=== PATIENT | female | born 1965 | race Caucasian/White ===

== ENCOUNTER → 2023-07-22 10:06 | Outpatient (REF) | payer BC, SELFPAY | LOC: WDC 10:06 | PROVIDERS: ATTENDING PHYSICIAN Nurse Practitioner Family | DX: N63.22 Unspecified lump in the left breast, upper inner quadrant (principal) | CPT/HCPCS: 76642; 77062; 77066 ==

== ENCOUNTER 2023-09-29 17:46 | Inpatient (IN) | payer BC, SELFPAY ==
[2023-09-29] VITALS (16 sets, daily range): BP systolic 75–139; BP diastolic 52–87; BMI 33.8
[2023-09-29 09:00] LABS: % Basophils 0.2 % (0-2); % Eosinophils 1.2 % (0-6); % Immature Granulocytes 0.7 % (0-0.5); % Lymphocytes 3.8 % (20.5-51.1); % Monocytes 6.7 % (1.7-9.3); % Neutrophils 87.4 % (42.2-75.2); Absolute Eosinophils 0.2 10^3/uL (0-0.7); Absolute Immature Granulocytes 0.1 10^3/uL (0-0.05); Absolute Lymphocytes 0.5 10^3/uL (1.2-3.4); Absolute Monocytes 0.8 10^3/uL (0.1-0.6); Absolute Neutrophils 10.9 10^3/uL (1.4-6.5); Hematocrit 37.8 % (37.0-47.0); Mean Corp Hgb Conc. 34.4 g/dL (33.0-37.0); Mean Corpuscular Hgb 25.9 pg (27.0-31.0); Mean Corpuscular Volume 75.4 fL (81.0-99.0); Mean Platelet Volume 8.8 fL (7.4-10.4); Nucleated Red Blood Cells % 0 %; Platelet Count 236 10^3/uL (130-400); Red Blood Cell Count 5.01 10^6/uL (4.20-5.40); Red Cell Dist. Width 14.7 % (11.5-14.5); White Blood Cell Count 12.5 10^3/uL (4.8-10.8)
[2023-09-29 09:04] LABS: ALT (SGPT) 35 U/L (0-35); AST (SGOT) 41 U/L (14-36); Albumin 3.7 g/dl (3.5-5.0); Alkaline Phosphatase 106 U/L (38-126); Blood Urea Nitrogen 31 mg/dl (7-17); Carbon Dioxide 29 mmol/L (22-30); Chloride 98 mmol/L (98-107); Estimated Creatinine Clearance 86 ml/min; Glucose 113 mg/dl (70-99); Sodium 135 mmol/L (135-145); Total Bilirubin 0.9 mg/dl (0.2-1.3); Total Protein 6.4 g/dl (6.3-8.2); eGFR > 60.00
--- NOTE | 2023-09-29 09:09 | ED.GENMED ---
History of Present Illness
General
Chief Complaint: Fever
Time Seen by Provider: 09/29/23 08:41
History of Present Illness
History of Present Illness:
58-year-old female with history of hypertension and hyperlipidemia presents to the emergency department for evaluation of waxing and waning fever and migratory polyarthralgias ongoing for the past 3 weeks. She initially had a sore throat and fever
and was seen by her primary care physician, reportedly had a negative strep test but was started on amoxicillin and prednisone. As the symptoms worsen she developed a rash on the skin after starting amoxicillin and thus was switched to doxycycline
shortly thereafter. She completed a 7-day course of doxycycline and yesterday finished a second course of prednisone without any relief of symptoms. She also reports generalized nausea, occasional vomiting, and generalized abdominal pain.
states that during the times that she is noting significant joint pain the joints are visibly swollen at that time as well. Was reportedly tested for Lyme primary care physician at the onset of symptoms and this was negative. She did being bitten
by any ticks and does not have any outdoor exposure that would put her at risk for this. No recent international travels.
Past History
Past History
ED Past Medical History: None
ED Past Surgical History: None
Social History
Tobacco: Non-smoker
Alcohol: None
Drug: None
Personal:
Living: with family
Employment: Employed
Family History
Family History: Other (No history of colitis)
Review of Systems
Review of Systems
Allergies reviewed?: Yes
All Other Systems: ROS reviewed and negative except as documented in HPI and ROS
Phy Exam
Physical Exam
Physical Exam:
GEN: Well appearing, NAD, WDWN
Eyes: PERRLA, EOMs intact, no scleral icterus
HENT: NCAT, oral mucosa moist, no JVD, no cervical adenopathy.
Lungs: CTAB, no wheezes, rales, rhonchi, normal chest wall excursion
Cardiac: RRR, no M/R/G, no peripheral edema. Radial pulses 2+ bilat
Abdomen: S, NT, ND, NABS, no masses or hepatosplenomegaly
Neuro: AO x 3
MSK: No gross deformity or ecchymosis. No obvious joint effusions
Skin: No rashes, petechiae. Normal color, no pallor or jaundice.
Psych: Calm, cooperative, proper hygiene
Course
Orders/Labs/Results
Orders:
Orders
09/29/23 08:44
CMP [Comprehensive Metabolic Panel] Urgent
Complete Blood Count/With Diff Urgent
Lyme Progressive Urgent
Comment: Add on per Ian Whiting
09/29/23 09:07
Lactic Acid Urgent
Urinalysis Reflex To Culture Urgent
Date Specimen was Collected: 09/29/23
Time Specimen was Collected: 09:04
Urine Microscopic Reflex Cult Urgent
Blood Culture Stat
NAVEEN Source: Blood/Venous
Specimen Description:
Urine Culture Urgent
NAVEEN Source: U
Specimen Description:
Date Specimen was Collected: 09/29/23
Time Specimen was Collected: 09:04
0.9% Sodium Chloride 1000 ml [Nss] 1,000 ml IV BOLUS
Acetaminophen [Tylenol] 1,000 mg PO NOW STA
Ondansetron Injectable [Zofran] 4 mg IV NOW STA
CR Chest - 2 Views Urgent
Comment:
Reason For Exam: fever
09/29/23 09:12
Electrocardiogram (*1) Urgent
Reason for Study: QTc Monitoring
EKG- Treatment ONCE
09/29/23 09:58
Blood Culture Urgent
NAVEEN Source: Blood/Venous
Specimen Description:
09/29/23 10:33
Add On- LAB Urgent
Tests Added?: Lyme
09/29/23 11:04
CT Abd/pel W Iv And Oral Contr Urgent
Comment:
Reason For Exam: fever x 3 weeks
Iohexol [Omnipaque] See Protocol PO NOW STA
09/29/23 11:56
0.9% Sodium Chloride 1000 ml [Nss] 1,000 ml IV BOLUS
09/29/23 13:22
0.9% Sodium Chloride 1000 ml [Nss] 800 ml IV BOLUS
Cefepime HCl [Maxipime] 2,000 mg IV NOW STA
09/29/23 14:46
Ketorolac [Toradol] 15 mg IV NOW STA
Ondansetron Injectable [Zofran] 4 mg IV NOW STA
09/29/23 15:30
Blood Culture Urgent
NAVEEN Source: Blood/Venous
Specimen Description:
Abnormal Lab Results
09/29/23 09/29/23
08:44 09:07
WBC 12.5 H 10^3/uL
(4.8-10.8)
MCV 75.4 L fL
(81.0-99.0)
MCH 25.9 L pg
(27.0-31.0)
RDW 14.7 H %
(11.5-14.5)
Abs Immat Gran (auto) 0.1 H 10^3/uL
(0-0.05)
Absolute Neuts (auto) 10.9 H 10^3/uL
(1.4-6.5)
Absolute Lymphs (auto) 0.5 L 10^3/uL
(1.2-3.4)
Absolute Monos (auto) 0.8 H 10^3/uL
(0.1-0.6)
Immature Gran % 0.7 H %
(0-0.5)
Neutrophils % 87.4 H %
(42.2-75.2)
Lymphocytes % 3.8 L %
(20.5-51.1)
BUN 31 H mg/dl
(7-17)
Glucose 113 H mg/dl
(70-99)
AST 41 H U/L
(14-36)
Urine Ketones Trace A
(Negative)
Ur Occult Blood Reflex 4+ A
(Negative)
Urine Bilirubin 1+ A
(Negative)
Leukocyte Esterase Rfl 1+ A
(Negative)
Urine RBC 3-6 A /HPF
(0-2)
Urine Bacteria (Reflex) Moderate A
(Negative)
09/29/23 08:44
09/29/23 08:44
Vital Signs
Initial and Last Documented VS:
Initial Vital Signs
Temp Pulse Resp Pulse Ox
103.2 F H 94 16 95
09/29/23 08:24 09/29/23 08:24 09/29/23 08:24 09/29/23 08:24
Last Documented Vital Signs
Temp Pulse Resp BP Pulse Ox
103.1 F H 109 27 118/78 95
09/29/23 14:49 09/29/23 14:15 09/29/23 14:15 09/29/23 14:00 09/29/23 08:24
MDM/Problems Addressed
MDM/Problems Addressed:
Etiology to the patient's fever remains elusive. Broad workup is unrevealing. She was markedly hypotensive for a period of time requiring large fluid bolus of approx 2800cc. She does have bacteruria but sample has squamous cells. Ultimately she does
not look clinically well enough to be d/c home. Given scant leukocytosis will cover with one dose of broad spectrum IV abx and admit for further evaluation and management
*Critical Care Note
Total Time (30-74mins, 75-104mins- exclusive of procedures): Not Applicable
Update Note
Update Note:
Pt abruptly noted to be hypotensive in the 70s systolic. 2nd L of NS ordered. Will expedite CT if she remains hypotensive
ED Attending Note
-
Portions of this chart may have been created with voice recognition software.� Occasional wrong word or��sound alike� substitutions may have occurred due to the inherent limitations of voice recognition software.
Discharge Plan
Departure
Patient Disposition: Admit
Date of Disposition: 09/29/23
Time of Disposition: 14:57
Admit to: Med/Surg
Presentation/result/management discussed w/ accepting MD/DO: Hospitalist
Discharge Problem:
Fever of unknown origin (FUO)
Prescriptions:
No Action
atorvastatin 40 MG tablet
40 mg PO HS
losartan [Cozaar] 100 MG tablet
100 mg PO DAILY
prednisone 10 mg tablet
40 mg PO UD
Rx Instructions:
starting 09/18/23 take 40mg daily for 3 days then 30mg daily for 3 days then 20mg daily for 3 days then 10mg daily for 3 days
hydrochlorothiazide 25 mg Tablet
25 mg PO DAILY
acetaminophen [Tylenol] 325 mg Tablet
650 mg PO Q4HPRN PRN (Reason: mild pain)
sertraline 100 mg Tablet
100 mg PO HS
montelukast [Singulair] 10 mg Tablet
10 mg PO HS
Referrals:
Isa Varner PA [Family Provider] -
Interventions
Interventions:
*Risk Screen - Suicide Last Done: 09/29/23 08:34
*General Assessment Last Done: 09/29/23 08:34
*Neglect/Abuse Screening Last Done: 09/29/23 08:34
ED- Fall Risk Assessment Last Done: 09/29/23 08:34
*ED COVID-19 Vaccine History Last Done: 09/29/23 08:24
ED- Neurological Assessment Last Done: 09/29/23 08:34
ED-Skin Assessment Last Done: 09/29/23 08:34
Discharge Date and Time
Print Language: SLOVENIAN
[2023-09-29] MEDS: NSS 1000 IV ×3 (09:14→19:47)
[2023-09-29] MEDS: TYLENOL 1000 MG PO (09:14)
[2023-09-29] MEDS: ZOFRAN 4 MG IV ×3 (09:15→20:19)
[2023-09-29 09:30] LABS: Lactic Acid 1.2 mmol/L (0.7-2.0)
[2023-09-29] MEDS: OMNIPAQUE 50 ML PO (11:14)
[2023-09-29 11:30] LABS: Urine Albumin Trace (Neg - Trace); Urine Bilirubin 1+ (Negative); Urine Character Clear (Clear); Urine Color Yellow; Urine Glucose Negative (Negative); Urine Ketone Trace (Negative); Urine Leukocyte 1+ (Negative); Urine Nitrite Negative (Negative); Urine Occult Blood 4+ (Negative); Urine Urobilinogen Negative (Neg - 1+)
[2023-09-29 11:49] LABS: Urine Urothelial Cell 0-2 /LPF (FEW)
[2023-09-29 11:50] LABS: Urine Bacteria Moderate (Negative)
[2023-09-29] MEDS: MAXIPIME 2000 MG IV (13:42)
[2023-09-29] MEDS: NSS 800 IV (13:42)
[2023-09-29] MEDS: TORADOL 15 MG IV (14:53)
--- NOTE | 2023-09-29 16:41 | HPS.HSE ---
Family Physician
-
Family Physician: Isa Varner
Chief Complaint
-
FUO, hypotension
History of Present Illness
The patient is a 58 yo woman with PMH significant for HTN and HLD, who presents to ED due to intermittent fever and migratory polyarthralgias for 3 weeks. She was seen by PCP for sore through and fever, had negative strep and was started on
Amoxicillin (2 days) and prednisone (20 days total). Symptoms worsened and she developed rash, so abx was changed to Doxycycline (completed total of 10 days of Doxy), and yesterday finished 20-day course of prednisone without any relief. She's also
had associated nausea, occasional vomiting, generalized abdominal pain, migrating joint pain, migrating joint swelling, and rashes that are intermittent (rash started before starting amoxicillin), one rash appeared discoid though is no longer
present, some rashes in lines/raised, some macular/papular. She was tested for Lyme by PCP and was told this was negative. No known tick bites, no recent travel. She was hypotensive in ED, and it improved with large fluid bolus 2800 mL.
ED diagnostics: CT a/p, CXR, EKG, LA level, lyme titer, UA, Blood cx, urine cx
ED txt:
IVF boluses, Tylenol PO, Zofran IV, IV Cefepime 2 g
Medical History
Past Medical History
Past Medical History: Reports HTN and Hypercholesterolemia
Past Surgical History: Reports None
Social History
Tobacco: Non-smoker
Alcohol: Occasional
Drug: None
Personal:
Living: With Family
Employment: Employed ([employer])
Family History
Family History: Other (sister w lupus )
Allergies / Home Medications
Allergies reflects when Allergies were last updated in [facility].
Home Medications with original date entered in [facility]
Allergy/Medication List:
Allergies
Allergy/AdvReac Type Severity Reaction Status Date / Time
NKA - No Known Allergies Allergy Unknown Uncoded 09/29/23 08:26
Home Medications
atorvastatin 40 mg tablet 40 mg PO HS 05/23/20
losartan 100 mg tablet (Cozaar) 100 mg PO DAILY 05/23/20
acetaminophen 325 mg tablet (Tylenol) 650 mg PO Q4HPRN PRN mild pain 09/29/23
hydrochlorothiazide 25 mg tablet 25 mg PO DAILY 09/29/23
montelukast 10 mg tablet (Singulair) 10 mg PO HS 09/29/23
prednisone 10 mg tablet 40 mg PO UD 09/29/23
sertraline 100 mg tablet 100 mg PO HS 09/29/23
Review of Systems
-
A 12 point ROS was completed and negative except as noted: Yes
Physical Exam
Vital Signs
Vital Signs
Temp Pulse Resp BP Pulse Ox
103.1 F H 103 17 100/52 95
09/29/23 14:49 09/29/23 16:00 09/29/23 14:48 09/29/23 16:00 09/29/23 08:24
Physical Exam
General: Well Developed, Well Nourished, Conversant and Other (feels hot)
HEENT: NormoCephalic, Anicteric, Moist mucous membranes and Other (tonsillolith posterior/ no tonsillar exudate)
Respiratory: Clear
Cardiac: S1/S2 and Tachycardia
GI: Soft, Non Tender, Non Distended and Normal Bowel Sounds
Musculoskeletal: No Clubbing, No Cyanosis and No Edema
Skin: Warm, Dry and Other (no active rashes)
Neuro: AO x 3 and Nonfocal/grossly intact
Hematologic/Lymphatic: No Lymphadenopathy
Psych: Calm
Laboratory Results
-
09/29/23 08:44
09/29/23 08:44
Laboratory Results
Lactic Acid 1.2 mmol/L (0.7-2.0) 09/29/23 09:07
Total Bilirubin 0.9 mg/dl (0.2-1.3) 09/29/23 08:44
AST 41 U/L (14-36) H 09/29/23 08:44
ALT 35 U/L (0-35) 09/29/23 08:44
Alkaline Phosphatase 106 U/L (38-126) 09/29/23 08:44
Data Reviewed
-
Diagnostic Radiology: Report Reviewed by me (CXR Mild opacity in the left lung base favored to represent atelectasis. The cardiomediastinal silhouette is normal. Chronic mild degenerative changes of the spine.)
CT Scan: Report Reviewed by me (CT a/p w IV and oral contrast- 2.5 mm left renal calculus, otherwise normal)
Impression/Plan
-
IMPRESSION:The patient is a 58 yo woman with PMH significant for HTN and HLD, who presents to ED due to intermittent fever and migratory polyarthralgias for 3 weeks. She was seen by PCP for sore through and fever, had negative strep and was started
on Amoxicillin (2 days) and prednisone (20 days total). Symptoms worsened and she developed rash, so abx was changed to Doxycycline (completed total of 10 days of Doxy), and yesterday finished 20-day course of prednisone without any relief. She's
also had associated nausea, occasional vomiting, generalized abdominal pain, migrating joint pain, migrating joint swelling, and rashes that are intermittent (rash started before starting amoxicillin), one rash appeared discoid though is no longer
present, some rashes in lines/raised, some macular/papular. She was tested for Lyme by PCP and was told this was negative. No known tick bites, no recent travel. She was hypotensive in ED, and it improved with large fluid bolus 2800 mL.
ED diagnostics: CT a/p, CXR, EKG, LA level, lyme titer, UA, Blood cx, urine cx
ED txt:
IVF boluses, Tylenol PO, Zofran IV, IV Cefepime 2 g
# FUO , fever 103, associated with intermittent rash (one discoid, several dermatographic, not present currently), migratory polyarthropathy with migrating joint swelling, abdominal discomfort, presents with hypotension, leukocytosis, tachycardia,
concerning for multifactorial etiology, autoimmune vs infectious etiology vs inflammatory process
- due to persistent hypotension, received 2800 mL bolus in ED, BP 100/70 currently p bolus
-Tele admit
-Cont IVF, hold off on stress dose of steroids for now as BP is stable currently p fluids; unless persistent intractable hypotension then consider stress-dose steroids
-ID consultation appreciated with recs for labs: ferritin, ESR/CRP, NAVID/RF, CCP, SPEP, T-spot, am cortisol level, repeat 3rd set of blood cultures, then start IV Doxy & IV Rocephin
-blood cx (2nd and 3rd set in ED)
-UA pending
-CT a/p reviewed- unlikely that small non-obstructing stone is etiology of fevers/symptoms, but may be etiology of blood in urine
#Mild transaminitis with AST 41
-repeat CMP in am
#HTN
-hold antihypertensives while hypotensive
#HLD
-statin
# Cont Sertraline
DVT proph-Lovenox
Full Code
--- NOTE | 2023-09-29 18:55 | PTCARENOTE ---
Received pt from ER via stretcher, accompanied by ER staff. Pt AAO x3, WRIGHT;ambulatory to bed with minimal assistance. Placed on telemetry:sinus tachy. On room air- pulseox 95%, no SOB noted. Temp 102.9 PO. Pt oriented to 4east, currently
resting in bed. Awaiting lab to draw blood cx. Will continue to monitor.
[2023-09-29 19:12] LABS: Erythrocyte Sed Rate 20 mm/hour (0-20)
[2023-09-29] MEDS: PROTONIX IV 40 MG IV (19:48)
[2023-09-29] MEDS: LOVENOX 40 MG SC (19:48)
[2023-09-29] MEDS: NSS (PRESERVATIVE FREE) 10 ML IV (19:49)
[2023-09-29] MEDS: ROCEPHIN 1000 MG IV (19:52)
[2023-09-29] MEDS: STERILE WATER FOR INJECTION 10 ML IV (19:53)
[2023-09-29] MEDS: VIBRAMYCIN 260 MG IV (20:10)
[2023-09-29] MEDS: TYLENOL 650 MG PO (20:15)
[2023-09-29] MEDS: LIPITOR 40 MG PO (21:26)
[2023-09-29] MEDS: ZOLOFT 100 MG PO (21:26)
[2023-09-29] MEDS: SINGULAIR 10 MG PO (21:27)
[2023-09-29] MEDS: MOTRIN PO (23:55)
[2023-09-30] MEDS: TYLENOL 650 MG PO ×2 (01:57→08:37)
[2023-09-30 03:41] VITALS: BP 131/82
[2023-09-30 06:00] VITALS: BMI 34.0
[2023-09-30 07:10] VITALS: BP 127/83
[2023-09-30 07:26] LABS: % Basophils 0.2 % (0-2); % Lymphocytes 2.9 % (20.5-51.1); % Monocytes 4.3 % (1.7-9.3); % Neutrophils 89.6 % (42.2-75.2); Absolute Eosinophils 0.2 10^3/uL (0-0.7); Absolute Immature Granulocytes 0.1 10^3/uL (0-0.05); Absolute Lymphocytes 0.3 10^3/uL (1.2-3.4); Absolute Monocytes 0.4 10^3/uL (0.1-0.6); Absolute Neutrophils 9.2 10^3/uL (1.4-6.5); Hematocrit 34.1 % (37.0-47.0); Hemoglobin 11.5 g/dL (12.0-16.0); Mean Corp Hgb Conc. 33.7 g/dL (33.0-37.0); Mean Corpuscular Hgb 25.8 pg (27.0-31.0); Mean Corpuscular Volume 76.5 fL (81.0-99.0); Nucleated Red Blood Cells % 0 %; Platelet Count 134 10^3/uL (130-400); Red Blood Cell Count 4.46 10^6/uL (4.20-5.40); White Blood Cell Count 10.2 10^3/uL (4.8-10.8)
[2023-09-30 07:34] LABS: INR 1.36; PT 16.6 Sec (11.4-14.6)
[2023-09-30 07:35] LABS: APTT 55.2 Sec (23.4-35.0)
[2023-09-30 08:03] LABS: ALT (SGPT) 53 U/L (0-35); AST (SGOT) 69 U/L (14-36); Albumin 2.8 g/dl (3.5-5.0); Alkaline Phosphatase 135 U/L (38-126); Blood Urea Nitrogen 15 mg/dl (7-17); Calcium 7.8 mg/dl (8.4-10.2); Carbon Dioxide 27 mmol/L (22-30); Chloride 101 mmol/L (98-107); Estimated Creatinine Clearance 99 ml/min; Glucose 89 mg/dl (70-99); Sodium 134 mmol/L (135-145); Total Bilirubin 1.1 mg/dl (0.2-1.3); Total Protein 5.2 g/dl (6.3-8.2); eGFR > 60.00
[2023-09-30 08:36] LABS: Cortisol, Random 24.1 ug/dl
[2023-09-30] MEDS: PROTONIX IV 40 MG IV (08:37)
[2023-09-30] MEDS: NSS (PRESERVATIVE FREE) 10 ML IV (08:37)
[2023-09-30] MEDS: VIBRAMYCIN 260 MG IV ×2 (08:55→19:54)
[2023-09-30 11:48] VITALS: BP 115/71
[2023-09-30] MEDS: ZOFRAN 4 MG IV ×2 (14:59→22:48)
[2023-09-30 15:09] LABS: Lyme Antibody Screen, EIA Negative (Negative)
[2023-09-30 15:09] LABS: Rheumatoid Agglutinin Less Than 10 IU (<10 IU)
--- NOTE | 2023-09-30 15:19 | W.PN.HOSP.TC ---
Today's Communication/Plan
-
check hepb/c/hiv in am
f/u blood culture report
monitor T curve
Assessment / Plan
Assessment / Plan
1. Fever of unclear origin
Migratory polyarthralgia
-Patient with ongoing high-grade fever for last few days
-Patient finished empiric course of amoxicillin/steroid (20 days)/doxycycline (10 days)
-Denies of any recent travel. No previous history of similar issues
-Chest x-ray/CT abdomen pelvis/UA unrevealing for any acute etiology
-Blood cultures have been collected and report pending
-Test sent for TB T spot/NAVID/rheumatoid factor/anti-CCP
-Significantly elevated acute phase reactant, CRP of 165. Ferritin 2980. ESR normal? 20
-Does have family history of SLE, NAVID serum are elevated will need to check for dsDNA/anti-Boyle antibody/complement
-Patient also reported skin rash which is resolved this point (likely from steroid course?), vasculitis remains in differential
-ID has been involved, checking for hepatitis B/C/HIV. Other viral panels/infectious etiology testing per ID.
-Currently on empiric Rocephin and doxycycline.
2. Hyperlipidemia
-Maintain on Lipitor
3. Depression/anxiety
-continue on sertraline
4. Essential HTN
-Blood pressure controlled without losartan/hydrochlorothiazide, continue monitor
-will resume once appropriate
5. Elevated ferritin level
Mild transaminitis
-LFT minimally elevated with ferritin of 2980
-check for Transferrin saturation level
6. Microcytic anemia
-MCV 76.5 which is chronically low at somewhat same level
-Ferritin elevated. check for Iron saturation
DVT PPX -scd
Full code
Total time spent : 52 mins
I personally saw and examined the patient.
I have reviewed all diagnostic interpretations and treatment plans as written.
Time includes patient management by me, time spent at the patients bedside, time to review lab and imaging results, discussing patient care, documentation in the medical record, and time spent with the family or caregiver and discussing care plan
with RN/Consultants.
Anticipated Discharge: > 48 hours
Subjective/Interval History
-
Date of Service: September 30, 2023
Continues to have high-grade fever overnight
continues to have diffuse joint aches
no rash
Objective Data
-
Labs:
Laboratory Results
09/30/23
07:10
WBC 10.2
Hgb 11.5 L
Hct 34.1 L
Plt Count 134 D
PT 16.6 H
INR 1.36
APTT 55.2 H
Sodium 134 L
Potassium 4.0
Chloride 101
Carbon Dioxide 27
BUN 15
Creatinine 0.7
Glucose 89
Calcium 7.8 L
Total Bilirubin 1.1
AST 69 H
ALT 53 H
Alkaline Phosphatase 135 H
Vital Signs:
Vital Signs
Temp Pulse Resp BP Pulse Ox
101.1 F H 103 20 115/71 99
09/30/23 11:48 09/30/23 11:48 09/30/23 11:48 09/30/23 11:48 09/30/23 13:53
Review of Systems
-
Constitutional: Reports Fever and Fatigue
Respiratory: Reports No Symptoms
Cardiac: Reports No Symptoms
Abdomen/GI: Reports No Symptoms
Musculoskeletal: Reports Joint Pain; Denies Joint Swelling
Physical Exam
-
General: No Apparent Distress and Comfortable
HEENT: Negative Oxygen
Respiratory: Clear to Auscultation
Cardiac: Regular Rhythm and S1/S2; Negative Murmur or Rub
GI: Soft, Nontender and Nondistended
Musculoskeletal: No Edema
Neuro: Awake, Alert, Oriented, No Motor Deficits and Nonfocal/Grossly Intact
Psych: Calm
--- NOTE | 2023-09-30 15:33 | CON.ID ---
Consultation
-
Date/Time Consultation Requested: September 29, 2023 1833
Date/Time Consultation Performed: September 30, 2023 1530
Requesting Provider: Dr. Raphael Jo
Performing Provider: Dr. Kim Murrieta
Reason for Consultation: FUO, hypotensive, migratory polymyalgia, rash
Chief Complaint / Past History
Chief Complaint
High fevers
History of Present Illness
History obtained from the patient. She is a 58-year-old female with hypertension who started feeling unwell on
September 06, 2023 with a queasy feeling and bodyaches. On September 07 she noted a rash on her chest.
September 06: she developed sore throat
September 07: sore throat became severe associated with low-grade fever and joint pains. Rash on her body.
September 09: she saw her PCP throat swab was negative for rapid strep. She was started on amoxicillin and prednisone taper over 12 days.
September 10: she felt better
September 11: she started feeling worse again with throat pain, worsening rash, and migratory joint pains. COVID test negative. Her PCP discontinued amoxicillin and treated her with empiric oseltamivir.
She continues to have intermittent low-grade fevers, migratory joint pains knee on the knees, ankle, wrist, shoulder. Also with rash on her leg, abdomen, knee. Rash was not pruritic. Slight scratch resulted then dermatographia which would then
turn purple the next day then resolved. Some of the rash are maculopapular. Some looked like erythema multiforme. Of note she has photos of the rash on her cell phone.
September 16: She saw her primary care physician on who ordered blood test and started her empirically on doxycycline for possible Lyme and another 12-day course of prednisone taper. Rapid strep negative. Lyme screen was negative. Parvovirus IgG and
IgM negative. White count of 17.5, platelets over 500. Sed rate 37. CRP 121. On the second round of prednisone, the rash eventually resolved, migratory polyarthralgias resolved, fevers resolved. She finished a prednisone taper on September 26.
September 27 she started having high-grade fevers above 101 with chills, dry cough, frontal KELLER, some mild sinus congestion, nausea and vomiting, GI upset. Home COVID test negative.
Came to ED September 28. Persistently febrile up to 104. CT a/p unremarkable. CXR atelectasis. Bcx neg to date. Currently on ceftriaxone and doxycycline. No ill contacts. She lives with her . 23-year-old son and 19-year-old daughter. She
bakes cookies for living. Last travel was to [place] in May 2023. Last time she was outdoor in the gardens was August 30. No known tick bites. No pets. No known TB exposure. Positive sweats with the fever. Currently no arthralgias. No rash.
No diarrhea. No dysuria or flank pain.
Past History
Additional Past Medical History:
Hypertension
Dyslipidemia
asthma
Depression/anxiety
Stress-induced hives on LUE
Allergy History:
No Known Allergies Allergy (Unverified 09/29/23 18:35)
Medications Reviewed: Yes
Current Antibiotics:
Ceftriaxone
IV doxycycline
Social History
Tobacco: Non-Smoker
Alcohol: None
Drug: None
Personal:
Living: With Family
Employment: Employed ([employer])
Family History
Family History: Other (Sister with lupus)
Review of Systems
Review of Systems
HEENT: Negative Stiff Neck or Pharyngitis
Cardiovascular: Negative Chest Pain
Respiratory: Cough; Negative Dyspnea or Sputum Production
Gasteroenterology: Nausea and Vomiting
Genital / Urological: Negative Dysuria or Flank Pain
Endocrine: Weakness
Musculoskeletal: Negative Joint Pain or Joint Swelling
Skin / Hair / Nails: Negative Rash
Neurological: Negative Headache or Dizziness
All systems: All other systems were reviewed and were negative
Vital Signs
Temp Pulse Resp BP Pulse Ox
101.1 F H 103 20 115/71 99
09/30/23 11:48 06/24/24 11:48 09/30/23 11:48 09/30/23 11:48 09/30/23 13:53
Selected Entries
09/29/23
20:15
Temp 104.7 F H
Physical Exam
Physical Exam
Constitutional: No Acute Distress and Comfortable
Head: Other (No frontal or maxillary sinus tenderness)
Eyes: No Conjunctival Hemorrhage and Sclera Anicteric
Oral: No Thrush
Cardiovascular: Regular Rate and S1/S2
Pulmonary: Clear
Gastrointestinal: Soft, Non Tender, Non Distended and Normal Bowel Sounds
Genito-Urinary: Negative Butler or CVA Tenderness
Extremities: Negative Edema
Musculoskeletal: Negative Joint Swelling, Joint Effusion or Spinal Tenderness
Skin: Negative Rash
Neurological: AO x 3
Lab / Diagnostic Study Results
09/30/23 07:10
09/30/23 07:10
Abs Immat Gran (auto) 0.1 10^3/uL (0-0.05) H 09/30/23 07:10
Absolute Neuts (auto) 9.2 10^3/uL (1.4-6.5) H 09/30/23 07:10
Absolute Lymphs (auto) 0.3 10^3/uL (1.2-3.4) L 09/30/23 07:10
Absolute Monos (auto) 0.4 10^3/uL (0.1-0.6) 09/30/23 07:10
Absolute Basos (auto) 0.0 10^3/uL (0-0.2) 09/30/23 07:10
Immature Gran % 1.0 % (0-0.5) H 09/30/23 07:10
Neutrophils % 89.6 % (42.2-75.2) H 09/30/23 07:10
Lymphocytes % 2.9 % (20.5-51.1) L 09/30/23 07:10
Monocytes % 4.3 % (1.7-9.3) 09/30/23 07:10
Eosinophils % 2.0 % (0-6) 09/30/23 07:10
Basophils % 0.2 % (0-2) 09/30/23 07:10
ESR 20 mm/hour (0-20) 09/29/23 18:58
PT 16.6 Sec (11.4-14.6) H 09/30/23 07:10
INR 1.36 09/30/23 07:10
Lactic Acid 1.2 mmol/L (0.7-2.0) 09/29/23 09:07
C-Reactive Protein 165.70 mg/L (0.0-10.00) H 09/29/23 18:58
Ur Squamous Epith Cells 11-15 /LPF (Few) 09/29/23 09:07
Microbiology Results
Micro:
09/29/23 09:58 Blood Culture - Preliminary
Blood/Venous No Growth in 24 hours- Final report to follow
09/29/23 09:07 Urine Culture - Final
Urine
09/29/23 09:07 Blood Culture - Preliminary
Blood/Venous No Growth in 24 hours- Final report to follow
09/29/23 19:37 Blood Culture - Pending
Blood/Venous
09/29/23 18:58 Blood Culture - Pending
Blood/Venous
09/29/23 CXR: Mild left basilar atelectasis, less likely pneumonia in the appropriate clinical setting.
09/29/23 CT a/p with iv and oral contrast: 2.5 mm left renal calculus. Otherwise normal
Assessment / Plan
# Persistent high fever
# Leukocytosis x 1 resolved
# 3 week h/o intermittent sore throat, low grade fever, migratory polyarthralgia/arthritis, and rash -> ALL RESOLVED ON SECOND ROUND OF PREDNISONE TAPER X 12 DAYS.
-Outpatient Lyme neg, Parvovirus IgG/IgM neg, rapid strep x 2 negative, COVID19 neg.
- Bcx x 2 neg to date.
-CT a/p unremarkable
- UA no significant pyuria, no urinary sxs
- Suspect systemic rheumatological condition. She responded to steroid. When off steroid, fever recurred.
Ferritin and CRP significantly elevated.
Rheumatoid factor neg.
Work-up in progress. Added anti-DS DNA Ab.
No objection to steroid if blood cx remains neg.
-Postinfectious arthritis possible, ie ?rheumatic fever
Check anti-DNase and Anti-streptolysin
- Agree with HIV screen
- Check for syphilis.
[2023-09-30 15:44] VITALS: BP 115/71
[2023-09-30] MEDS: MOTRIN 400 MG PO ×2 (16:20→23:44)
[2023-09-30] MEDS: LOVENOX 40 MG SC (17:13)
--- NOTE | 2023-09-30 17:47 | CM ---
Attempted to speak with Scot, however she asked that I return another day, as she was not up to talking.
CM to follow up in AM to complete IA.
[2023-09-30] MEDS: STERILE WATER FOR INJECTION 10 ML IV (19:52)
[2023-09-30] MEDS: ROCEPHIN 1000 MG IV (19:53)
[2023-09-30 20:25] VITALS: BP 106/63
[2023-09-30] MEDS: ZOLOFT PO (21:14)
[2023-09-30] MEDS: SINGULAIR PO (21:14)
[2023-09-30] MEDS: LIPITOR PO (21:14)
[2023-09-30] MEDS: OFIRMEV 100 IV (21:50)
[2023-09-30 23:42] VITALS: BP 127/66
[2023-10-01 04:00] VITALS: BP 105/64
[2023-10-01 06:00] VITALS: BMI 34.3
[2023-10-01 07:10] VITALS: BP 108/66
[2023-10-01] MEDS: PROTONIX IV 40 MG IV (08:26)
[2023-10-01] MEDS: TYLENOL 650 MG PO ×2 (08:26→18:13)
[2023-10-01] MEDS: NSS (PRESERVATIVE FREE) 10 ML IV (08:26)
[2023-10-01] MEDS: VIBRAMYCIN 260 MG IV (08:26)
[2023-10-01 08:43] LABS: Hepatitis B Surface Antigen Negative (Negative)
[2023-10-01 09:01] LABS: Hepatitis B Core Ab, Total Negative (Negative); Hepatitis B Surface Antibody Negative; Hepatitis C Antibody Negative (Negative)
[2023-10-01 09:51] LABS: Anti Streptolysin Negative (Negative)
[2023-10-01 11:10] VITALS: BP 94/52
[2023-10-01] MEDS: DELTASONE 40 MG PO (12:54)
[2023-10-01] MEDS: IMODIUM 2 MG PO (12:54)
--- NOTE | 2023-10-01 13:28 | W.PN.ID1 ---
Date of Service
Date of Service: October 01, 2023
Today's Communication
DC doxy.
See below.
Assessment / Plan
# Persistent high fever
# Leukocytosis x 1 resolved
# 3 week h/o intermittent sore throat, low grade fever, migratory polyarthralgia/arthritis, and rash -> ALL RESOLVED ON SECOND ROUND OF PREDNISONE TAPER X 12 DAYS.
-Outpatient Lyme neg, Parvovirus IgG/IgM neg, rapid strep x 2 negative, COVID19 neg.
- Bcx x 2 neg to date.
-CT a/p unremarkable
- UA no significant pyuria, no urinary sxs
- Blood parasite smear neg.
-Repeat Lyme screen negative
- Suspect systemic rheumatological condition. She responded to steroid. When off steroid, fever recurred.
Ferritin and CRP significantly elevated.
Rheumatoid factor neg.
Work-up in progress.
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
Oupt rapid strep x 2 negative
Anti-streptolysin O negative.
Anti- DNase pending
- HIV screen pending
- syphilis pending
- DC doxycycline. Pt had 10d course outpt.
- Consider DC ceftriaxone
- No objection to steroid if blood cx remains neg.
-TTE
#Additional Past Medical History:
Hypertension
Dyslipidemia
asthma
Depression/anxiety
Stress-induced hives on LUE
Chief Complaint
-: Fever
Subjective / Review of Systems
Feels unwell with high fevers. Had diarrhea this morning.
Vital Signs / Physical Exam
Vital Signs
Vital Signs
Temp Pulse Resp BP Pulse Ox
101.1 F H 102 16 94/52 95
10/01/23 11:10 10/01/23 11:10 10/01/23 11:10 10/01/23 11:10 10/01/23 11:10
Physical Exam
Constitutional: No Acute Distress and Non-toxic
Eyes: No Conjunctival Hemorrhage and Sclera Anicteric
Pulmonary: Other (tachy)
Gastrointestinal: Soft, Non Tender and Non Distended
Genito-Urinary: Negative CVA Tenderness
Extremities: Negative Edema
Skin: Negative Rash
Neurological: AO x 3
Objective Data
Lab Data
Lab Results
09/30/23 07:10
09/30/23 07:10
ESR 20 mm/hour (0-20) 09/29/23 18:58
PT 16.6 Sec (11.4-14.6) H 09/30/23 07:10
INR 1.36 09/30/23 07:10
APTT 55.2 Sec (23.4-35.0) H 09/30/23 07:10
Estimated Creat Clear 99 ml/min 09/30/23 07:10
Lactic Acid 1.2 mmol/L (0.7-2.0) 09/29/23 09:07
Total Bilirubin 1.1 mg/dl (0.2-1.3) 09/30/23 07:10
AST 69 U/L (14-36) H 09/30/23 07:10
ALT 53 U/L (0-35) H 09/30/23 07:10
Alkaline Phosphatase 135 U/L (38-126) H 09/30/23 07:10
C-Reactive Protein 165.70 mg/L (0.0-10.00) H 09/29/23 18:58
Most recent labs reviewed.
Micro Results:
10/01/23 07:04 Blood Parasites Smear - Preliminary
Blood/Venous
09/29/23 09:58 Blood Culture - Preliminary
Blood/Venous No Growth in 48 hours- Final report to follow
09/29/23 09:07 Blood Culture - Preliminary
Blood/Venous No Growth in 48 hours- Final report to follow
09/29/23 19:37 Blood Culture - Preliminary
Blood/Venous No Growth in 24 hours- Final report to follow
09/29/23 18:58 Blood Culture - Preliminary
Blood/Venous No Growth in 24 hours- Final report to follow
09/29/23 09:07 Urine Culture - Final
Urine
09/29/23 CXR: Mild left basilar atelectasis, less likely pneumonia in the appropriate clinical setting.
09/29/23 CT a/p with iv and oral contrast: 2.5 mm left renal calculus. Otherwise normal
Care Review
Plan reviewed with: Physician (Dr. Jass Jo)
[2023-10-01 14:14] LABS: Transferrin 145 mg/dL (200-360)
--- NOTE | 2023-10-01 14:34 | CM ---
CM met with Scot today to complete IA. She lives with her in a 2 story home 1 entry step; self-employed.
Scot is still not feeling well and was only giving one word answers. Room is dark and curtain is around the bed almost completely. Attempted to give support, but not received well.
Scot feels she will have no needs at discharge.
CM will continue to follow.
PCP: Isa Varner
Pharmacy: [facility] in [place]
[2023-10-01] MEDS: ZOFRAN 4 MG IV (14:55)
[2023-10-01] MEDS: MORPHINE SULFATE 2 MG IV (14:56)
[2023-10-01 15:15] VITALS: BP 121/71
[2023-10-01 15:45] LABS: Syphilis/T. pallidum Ab Reflex Negative (Negative)
[2023-10-01 16:08] LABS: ALT (SGPT) 42 U/L (0-35); AST (SGOT) 69 U/L (14-36); Alkaline Phosphatase 217 U/L (38-126); Blood Urea Nitrogen 13 mg/dl (7-17); Calcium 8.3 mg/dl (8.4-10.2); Carbon Dioxide 24 mmol/L (22-30); Chloride 102 mmol/L (98-107); Estimated Creatinine Clearance 116 ml/min; Glucose 104 mg/dl (70-99); Potassium 4.4 mmol/L (3.5-5.1); Sodium 134 mmol/L (135-145); Total Bilirubin 0.7 mg/dl (0.2-1.3); Total Protein 5.3 g/dl (6.3-8.2); eGFR > 60.00
--- NOTE | 2023-10-01 16:26 | W.PN.HOSP.TC ---
Today's Communication/Plan
-
see note
Assessment / Plan
Assessment / Plan
1. Fever of unclear origin
Migratory polyarthralgia
-Patient with ongoing high-grade fever for last few days
-Patient finished empiric course of amoxicillin/steroid (20 days)/doxycycline (10 days)
-Denies of any recent travel. No previous history of similar issues
-Chest x-ray/CT abdomen pelvis/UA unrevealing for any acute etiology
-Blood cultures have been collected and report pending
-Test sent for TB T spot/NAVID/rheumatoid factor/anti-CCP
-Significantly elevated acute phase reactant, CRP of 165. Ferritin 2980. ESR normal? 20
-Does have family history of SLE, NAVID serum are elevated will need to check for dsDNA ab pending.
-Patient also reported skin rash which is resolved this point (likely from steroid course?), vasculitis remains in differential
-ID has been following and help appreciated.
-Hep/syphillis/lyme/random cortisol/rheumatoid factor/Parvo-virus/blood parasite neg. EBV panel/anti Ds DNA/Anti-CCP/TB T spot pending.
-Abx discontinued as no clear infectious source
-Started on prednisone 40mg/d for possible autoimmune/rheumatologic component
2. Diarrhea
Acute abdominal pain
-Patient having worsening intractable abdominal pain, abdominal examination benign
-stool studies sent
-Started on iv morphine which changed to Dilaudid for pain control.
-Lipase pending/Lactic acid wnl
3. Depression/anxiety
-continue on sertraline
4. Essential HTN
-Blood pressure controlled without losartan/hydrochlorothiazide, continue monitor
-will resume once appropriate
5. Elevated ferritin level
Mild transaminitis
-LFT minimally elevated with ferritin of 2980
-check for Transferrin saturation level
6. Microcytic anemia
-MCV 76.5 which is chronically low at somewhat same level
-Ferritin elevated. check for Iron saturation
7.Hyperlipidemia
-Maintain on Lipitor
DVT PPX -scd
Full code
Discussed care plan with ID
Anticipated Discharge: > 48 hours
Subjective/Interval History
-
Date of Service: October 01, 2023
Patient has new onset of diarrhea and intractable abdominal pain today
Poor appetite and not feeling like eating anything
No nausea vomiting
Objective Data
-
Labs:
Laboratory Results
10/01/23
15:45
Sodium 134 L
Potassium 4.4
Chloride 102
Carbon Dioxide 24
BUN 13
Creatinine 0.6
Glucose 104 H
Calcium 8.3 L
Total Bilirubin 0.7
AST 69 H
ALT 42 H
Alkaline Phosphatase 217 H
Vital Signs:
Vital Signs
Temp Pulse Resp BP Pulse Ox
102.9 F H 115 18 121/71 94
10/01/23 15:15 10/01/23 15:15 10/01/23 15:15 10/01/23 15:15 10/01/23 15:15
I&O
09/30/23 10/01/23 10/02/23
06:59 06:59 06:59
Intake Total 2640 / 2640
Balance 2640 / 2640
Review of Systems
-
Respiratory: Reports No Symptoms
Cardiac: Reports No Symptoms
Abdomen/GI: Reports Abdominal Pain and Diarrhea; Denies Nausea or Vomiting
Physical Exam
-
General: No Apparent Distress and Comfortable
HEENT: Negative Oxygen
Respiratory: Clear to Auscultation
Cardiac: Regular Rhythm and S1/S2; Negative Murmur or Rub
GI: Soft, Normal Bowel Sounds and Tender
Musculoskeletal: No Edema
Neuro: Awake, Alert, Oriented, No Motor Deficits and Nonfocal/Grossly Intact
Psych: Calm
[2023-10-01 16:33] LABS: Lipase 21 U/L (23-300)
[2023-10-01 17:09] LABS: HIV Combo Negative (Negative)
[2023-10-01] MEDS: LOVENOX SC (17:58)
[2023-10-01 19:49] VITALS: BP 122/90
[2023-10-01] MEDS: ZOLOFT 100 MG PO (21:37)
[2023-10-01] MEDS: LIPITOR 40 MG PO (21:37)
[2023-10-01] MEDS: SINGULAIR 10 MG PO (21:37)
[2023-10-01 22:57] VITALS: BP 102/66
[2023-10-02 01:53] LABS: CCP Antibody IgG/IgA 5 Units (0-19)
[2023-10-02 02:11] LABS: ANA, IgG Reflex to HEp-2 None Detected (None Detected)
[2023-10-02] MEDS: TYLENOL 650 MG PO ×3 (02:58→20:47)
[2023-10-02 03:26] VITALS: BP 143/79
[2023-10-02 06:00] VITALS: BMI 33.6
[2023-10-02 06:49] LABS: Hematocrit 29.1 % (37.0-47.0); Hemoglobin 10.1 g/dL (12.0-16.0); Mean Corp Hgb Conc. 34.7 g/dL (33.0-37.0); Mean Corpuscular Hgb 25.6 pg (27.0-31.0); Mean Corpuscular Volume 73.7 fL (81.0-99.0); Red Blood Cell Count 3.95 10^6/uL (4.20-5.40); Red Cell Dist. Width 14.7 % (11.5-14.5); White Blood Cell Count 2.6 10^3/uL (4.8-10.8)
[2023-10-02 07:10] VITALS: BP 114/75
[2023-10-02 07:21] LABS: Blood Urea Nitrogen 13 mg/dl (7-17); Calcium 8.6 mg/dl (8.4-10.2); Carbon Dioxide 23 mmol/L (22-30); Chloride 102 mmol/L (98-107); Estimated Creatinine Clearance 114 ml/min; Glucose 106 mg/dl (70-99); Potassium 3.6 mmol/L (3.5-5.1); Sodium 134 mmol/L (135-145); eGFR > 60.00
[2023-10-02 07:28] LABS: Mean Platelet Volume 10.4 fL (7.4-10.4); Platelet Count 79 10^3/uL (130-400)
[2023-10-02 08:22] LABS: Absolute Neutrophils -Man Diff 2.1 10^3/uL (1.4-6.5); Band Neutrophils 22 % (0-3); Eosinophils 4 % (0-6); Lymphocytes 10 % (20-51); Monocytes 3 % (2-9); Normal RBC Morphology Yes; Platelets Checked Yes; Segmented Neutrophils 61 % (42-75); Total Cells Counted 100
[2023-10-02] MEDS: NSS (PRESERVATIVE FREE) 10 ML IV (08:36)
[2023-10-02] MEDS: PROTONIX IV 40 MG IV (08:36)
[2023-10-02] MEDS: DELTASONE 40 MG PO (08:36)
--- NOTE | 2023-10-02 10:27 | W.PN.ID1 ---
Date of Service
Date of Service: October 02, 2023
Today's Communication
Observe off abx.
Continue steroid.
Assessment / Plan
# 3 week h/o intermittent sore throat, low grade fever, migratory polyarthralgia/arthritis, and rash -> ALL RESOLVED ON SECOND ROUND OF PREDNISONE TAPER X 12 DAYS.
-Outpatient Lyme neg, Parvovirus IgG/IgM neg, rapid strep x 2 negative, COVID19 neg. s/p 10days of doxycycline and 2 rounds of prednisone taper, outpatient.
# Fevers recurred day after completion of outpt prednisone.
# Acute pancytopenia
# Elevated inflammatory markers: CRP, ferritin
# mild elev AST/ALT
- Bcx x 4 neg to date.
-CT a/p unremarkable
- TTE normal
- UA no significant pyuria, no urinary sxs
- Blood parasite smear neg.
-Repeat Lyme screen negative
-HIV neg; syphilis neg
-Anti-streptolysin O negative.
Anti- DNase pending
- NAVID neg, RF neg, CCP Ab neg. Anti-DS DNA Ab pending
- Acute viral hepatitis negative
- EBV serologies pending. Unlikely EBV without hepatosplenomegaly; and elevated LFT's late onset.
- Inpt doxycycline and ceftriaxone dc'd 09/30 as pt did not respond to the abx's.
- Suspect systemic rheumatological/vasculitis condition.
- Prednisone started 09/30. Pt feeling better.
- Continue to follow temps and clinically.
#Additional Past Medical History:
Hypertension
Dyslipidemia
asthma
Depression/anxiety
Stress-induced hives on LUE
Chief Complaint
-: Fever
Subjective / Review of Systems
Feeling better since start of prednisone and off abx.
Severe abd pain much improved.
Eating more.
c/o unable to sleep in hospital.
Vital Signs / Physical Exam
Vital Signs
Vital Signs
Temp Pulse Resp BP Pulse Ox
99.9 F 92 16 114/75 93
10/02/23 07:10 10/02/23 07:10 10/02/23 07:10 10/02/23 07:10 10/02/23 07:10
Physical Exam
Constitutional: No Acute Distress and Non-toxic
Eyes: No Conjunctival Hemorrhage and Sclera Anicteric
Oropharyngeal: Benign
Cardiovascular: Regular Rate and S1/S2
Pulmonary: Clear
Gastrointestinal: Soft, Non Tender, Non Distended and Normal Bowel Sounds
Genito-Urinary: Negative CVA Tenderness
Extremities: Negative Edema
Skin: Negative Rash
Neurological: AO x 3
Objective Data
Lab Data
Lab Results
10/02/23 06:05
10/02/23 06:05
ESR 20 mm/hour (0-20) 09/29/23 18:58
PT 16.6 Sec (11.4-14.6) H 09/30/23 07:10
INR 1.36 09/30/23 07:10
APTT 55.2 Sec (23.4-35.0) H 09/30/23 07:10
Estimated Creat Clear 114 ml/min 10/02/23 06:05
Lactic Acid 1.0 mmol/L (0.7-2.0) 10/01/23 15:45
Total Bilirubin 0.7 mg/dl (0.2-1.3) 10/01/23 15:45
AST 69 U/L (14-36) H 10/01/23 15:45
ALT 42 U/L (0-35) H 10/01/23 15:45
Alkaline Phosphatase 217 U/L (38-126) H 10/01/23 15:45
C-Reactive Protein 165.70 mg/L (0.0-10.00) H 09/29/23 18:58
Most recent labs reviewed.
Micro Results:
09/29/23 09:58 Blood Culture - Preliminary
Blood/Venous No Growth in 72 hours- Final report to follow
09/29/23 09:07 Blood Culture - Preliminary
Blood/Venous No Growth in 72 hours- Final report to follow
09/29/23 19:37 Blood Culture - Preliminary
Blood/Venous No Growth in 48 hours- Final report to follow
09/29/23 18:58 Blood Culture - Preliminary
Blood/Venous No Growth in 48 hours- Final report to follow
10/01/23 07:04 Blood Parasites Smear - Preliminary
Blood/Venous
09/29/23 09:07 Urine Culture - Final
Urine
09/29/23 CXR: Mild left basilar atelectasis, less likely pneumonia in the appropriate clinical setting.
09/29/23 CT a/p with iv and oral contrast: 2.5 mm left renal calculus. Otherwise normal
Care Review
Plan reviewed with: Physician (Dr. Lakshmi Jo)
[2023-10-02 11:00] VITALS: BP 121/83
--- NOTE | 2023-10-02 11:21 | CON.ONC ---
Impression
Impression
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
Plan
Plan
So far, no unifying diagnosis has been made. There appears to be a rheumatologic component and a constellation of symptoms does seem to fit adult onset stills disease. Unfortunately, the differential diagnosis is somewhat broad and includes other
vasculitis as well as the rare macrophage activating syndrome (hemophagocytic lymphocytosis HFH). Patient does have a high ferritin low sed rate. Check triglycerides. I was going to order a bone marrow aspirate and biopsy (got [employer] approval) but
in discussing with attending, the patient who is relatively stable and nontoxic-appearing prefers to have testing as an outpatient after October 06 based on her high out of pocket co-pay cost if done prior to October 06 based on insurance change that is
happening on that date. So we will hold off for now. I strongly would recommend rheumatologic evaluation either as inpatient or if that is not possible closely as an outpatient. Attending is communicating with the rheumatologic service. We will
follow with you.
Patient History
History of Present Illness
CC: FUO, hypotension
58 yo woman with PMH significant for HTN and HLD, who presents to ED due to intermittent fever and migratory polyarthralgias for 3 weeks since 09/05. She was seen by PCP for sore through and fever, had negative strep and was started on Amoxicillin
(2 days) and prednisone (20 days total). Symptoms worsened and she developed rash, so abx was changed to Doxycycline (completed total of 10 days of Doxy), and yesterday finished 20-day course of prednisone without any relief. She's also had
associated nausea, occasional vomiting, generalized abdominal pain, migrating joint pain, migrating joint swelling, and rashes that are intermittent (rash started before starting amoxicillin). She was tested for Lyme by PCP and was told this was
negative. No known tick bites, no recent travel. She has had progressive rising fevers but infectious disease workup has been relatively unremarkable. She also has had an inpatient rheumatologic workup which so far has been somewhat unremarkable.
Rheumatology has been curb sided but has not officially seen the patient. Patient's insurance I am being told be changing October 06 and attending tells me that if testing particularly high cost testing can wait until after 10/06 insurance change that
would be helpful to her [id number] cost. Currently patient has no specific new complaints other than those mentioned above.
Past-Medical/Surgical History
PMH: HTN and Hypercholesterolemia
PSH: None
SH:
Tobacco: Non-smoker
Alcohol: Occasional
Drug: None
Personal:
Living: With Family
Employment: Employed ([employer])
FH:sister w lupus
Patient Medication
�Medication �Instructions �Recorded �Confirmed �Last Taken �Type
atorvastatin 40 mg tablet 40 mg PO HS 05/23/20 09/29/23 09/28/23 History
losartan 100 mg tablet (Cozaar) 100 mg PO DAILY 05/23/20 09/29/23 09/28/23 History
acetaminophen 325 mg tablet 650 mg PO Q4HPRN PRN mild pain 09/29/23 09/29/23 09/28/23 History
(Tylenol)
hydrochlorothiazide 25 mg tablet 25 mg PO DAILY 09/29/23 09/29/23 09/28/23 History
montelukast 10 mg tablet 10 mg PO HS 09/29/23 09/29/23 09/28/23 History
(Singulair)
prednisone 10 mg tablet 40 mg PO UD 09/29/23 09/29/23 09/28/23 History
sertraline 100 mg tablet 100 mg PO HS 09/29/23 09/29/23 09/28/23 History
Active Medications
Generic Name Dose Route Start Last Admin
Trade Name Freq PRN Reason Stop Dose Admin
Acetaminophen 650 mg 09/29/23 18:33 10/02/23 10:45
Acetaminophen 325 Mg Tablet PO 10/27/23 18:32 650 mg
Q4HPRN PRN Administration
mild pain
Atorvastatin Calcium 40 mg 09/29/23 22:00 10/01/23 21:37
Atorvastatin (Lipitor) 40 Mg Tablet PO 10/27/23 21:59 40 mg
HS ASIM Administration
Bisacodyl 10 mg 09/29/23 18:33
Bisacodyl 10 Mg Rectal Suppository RECTAL 10/27/23 18:32
[id number] PRN
constipation
Enoxaparin Sodium 40 mg 09/29/23 18:33 10/01/23 17:58
Enoxaparin Sodium 40 Mg/0.4 Ml Syringe SC 10/27/23 18:32 Not Given
QPM ASIM
Hydromorphone HCl 0.25 mg 10/01/23 15:10
Hydromorphone 0.25 Mg/0.5 Ml Syringe IV 10/15/23 15:09
Q3HPRN PRN
mod pain
Hydromorphone HCl 0.5 mg 10/01/23 15:10
Hydromorphone 0.5 Mg/0.5 Ml Syringe IV 10/15/23 15:09
Q3HPRN PRN
sev pain
Loperamide HCl 2 mg 10/01/23 11:57 10/01/23 12:54
Loperamide 2 Mg Capsule PO 10/29/23 11:56 2 mg
Q4HPRN PRN Administration
Diarrhea
Montelukast Sodium 10 mg 09/29/23 22:00 10/01/23 21:37
Montelukast Sodium 10 Mg Tablet PO 10/27/23 21:59 10 mg
HS ASIM Administration
Ondansetron HCl 4 mg 09/29/23 20:10 10/01/23 14:55
Ondansetron 4 Mg/2 Ml Vial IV 10/27/23 20:09 4 mg
Q6HPRN PRN Administration
NAUSEA/VOMITING
Pantoprazole Sodium 40 mg 09/29/23 18:33 10/02/23 08:36
Pantoprazole Sodium 40 Mg/10 Ml Vial IV 10/27/23 18:32 40 mg
DAILY ASIM Administration
Polyethylene Glycol 17 grams 09/29/23 18:33
Polyethylene Glycol Powder 17 Grams Packet PO 10/27/23 18:32
DAILYPRN PRN
constipation
Prednisone 40 mg 10/01/23 12:00 10/02/23 08:36
Prednisone 20 Mg Tablet PO 10/29/23 11:59 40 mg
DAILY ASIM Administration
Senna/Docusate Sodium 1 tablet 09/29/23 18:33
Docusate W/Senna (Michelle-Colace) Tablet PO 10/27/23 18:32
BIDPRN PRN
constipation
Sertraline HCl 100 mg 09/29/23 22:00 10/01/23 21:37
Sertraline 100 Mg Tablet PO 10/27/23 21:59 100 mg
HS ASIM Administration
Sodium Chloride 0 flush 09/29/23 19:00
Sodium Chloride 0.9% (Flush) Syringe IV 10/27/23 18:59
PER PROTOCOL ASIM
Sodium Chloride 10 ml 09/29/23 19:00 10/02/23 08:36
Sodium Chloride 0.9% (Preservative Free) 10 Ml Vial IV 10/27/23 18:59 10 ml
DAILY ASIM Administration
Physical Exam
-
General: Well Developed, Well Nourished, No Apparent Distress and Comfortable
HEENT: Negative Jaundice
Cardiology: S1 and S2
Pulmonary: Clear
GI: Soft and Normal Bowel Sounds; Negative Distended, No Organomegaly or Spleenomegaly
Musculoskeletal: No Clubbing, No Cyanosis and No Edema
Extremities: No C/C/E; Negative Phlebitic Signs
Neurology: Non Focal
Hematologic / Lymphatic: No Lymphadenopathy
Labs
Lab Results
WBC 2.6 10^3/uL (4.8-10.8) L 10/02/23 06:05
RBC 3.95 10^6/uL (4.20-5.40) L 10/02/23 06:05
Hgb 10.1 g/dL (12.0-16.0) L 10/02/23 06:05
Hct 29.1 % (37.0-47.0) L 10/02/23 06:05
MCV 73.7 fL (81.0-99.0) L 10/02/23 06:05
MCH 25.6 pg (27.0-31.0) L 10/02/23 06:05
MCHC 34.7 g/dL (33.0-37.0) 10/02/23 06:05
RDW 14.7 % (11.5-14.5) H 10/02/23 06:05
Plt Count 79 10^3/uL (130-400) L D 10/02/23 06:05
MPV 10.4 fL (7.4-10.4) 10/02/23 06:05
Abs Immat Gran (auto) 0.1 10^3/uL (0-0.05) H 09/30/23 07:10
Absolute Neuts (auto) 9.2 10^3/uL (1.4-6.5) H 09/30/23 07:10
Absolute Lymphs (auto) 0.3 10^3/uL (1.2-3.4) L 09/30/23 07:10
Absolute Monos (auto) 0.4 10^3/uL (0.1-0.6) 09/30/23 07:10
Absolute Eos (auto) 0.2 10^3/uL (0-0.7) 09/30/23 07:10
Absolute Basos (auto) 0.0 10^3/uL (0-0.2) 09/30/23 07:10
Immature Gran % 1.0 % (0-0.5) H 09/30/23 07:10
Neutrophils % 89.6 % (42.2-75.2) H 09/30/23 07:10
Lymphocytes % 2.9 % (20.5-51.1) L 09/30/23 07:10
Monocytes % 4.3 % (1.7-9.3) 09/30/23 07:10
Eosinophils % 2.0 % (0-6) 09/30/23 07:10
Basophils % 0.2 % (0-2) 09/30/23 07:10
Creatinine 0.6 mg/dL (0.6-1.0) 10/02/23 06:05
Laboratory Tests
09/29/23 10/01/23
18:58 15:45
ESR 20
Ferritin 2980.0 H
AST 69 H
ALT 42 H
Alkaline Phosphatase 217 H
C-Reactive Protein 165.70 H
Vital Signs
Vital Signs
Temp Pulse Resp BP Pulse Ox
102.7 F H 96 16 121/83 95
10/02/23 11:00 10/02/23 11:00 10/02/23 11:00 10/02/23 11:00 10/02/23 11:00
[2023-10-02] MEDS: ALPRAZOLAM ODT 0.25 MG PO (11:56)
--- NOTE | 2023-10-02 13:38 | PN.CDI ---
CDI
- -
CDI:
Physician Documentation Request
Admit Date: 09/29/23 17:46
Dear Doctor Sandro ,
Please review the following and provide your response in the progress notes.
Clinical Indicators:
Pt admitted with fever
10/01 ID note: 'Elevated inflammatory markers: CRP, ferritin'
Selected Entries
09/29/23
09:00 09/29/23
12:00 09/29/23
13:00
Pulse 108 101 99
Resp Rate 27 18 27
Blood pressure 92/66 86/62 93/60
Laboratory Tests
09/29/23 09/30/23 10/02/23
08:44 07:10 06:05
WBC 12.5 H 10.2 2.6 L
Please clarify which most accurately describes the patient:
Sepsis
Systemic manifestations of infection, with 2 or more SIRS criteria which include:
Fever > 100.4 degrees F or hypothermia < 96.8 degrees F
Leukocytosis - WBC > 12,000 or leukopenia, WBC < 4,000 or > 10% bands
Tachycardia - > 90 beats per minute
Tachypnea - RR > 20 breaths per minute or PaCO2 < 32 mmHg
Source: Merck Manual 2013
Indicate if there is associated organ dysfunction, such as renal or respiratory failure
SIRS due to a non-infectious source
Indicate the known or suspected etiology
Indicate if there is associated organ dysfunction, such as renal or respiratory failure
Other
Unable to determine
Use of terms such as suspected, likely, concern for, or probable (associated with a specific diagnosis that is being evaluated, monitored, or treated as if it exists) are acceptable and can be coded in the inpatient setting, when documented at the
time of discharge.
Thank you,
Shania Dockery RN, BSN
CDI Specialist
Available via [place] [employer]
Please use your independent medical judgment in providing your response.
--- NOTE | 2023-10-02 13:46 | W.PN.HOSP.TC ---
Today's Communication/Plan
-
see note
Assessment / Plan
Assessment / Plan
1. Fever of unclear origin
Migratory polyarthralgia
-Patient with ongoing high-grade fever for last few days
-Patient finished empiric course of amoxicillin/steroid (20 days)/doxycycline (10 days)
-Denies of any recent travel. No previous history of similar issues
-Chest x-ray/CT abdomen pelvis/UA unrevealing for any acute etiology
-Blood cultures have been collected and report pending
-Test sent for TB T spot/NAVID/rheumatoid factor/anti-CCP
-Significantly elevated acute phase reactant, CRP of 165. Ferritin 2980. ESR normal? 20
-Does have family history of SLE, NAVID serum are elevated will need to check for dsDNA ab pending.
-Patient also reported skin rash which is resolved this point (likely from steroid course?), vasculitis remains in differential
-Hepatitis/syphilis/lyme/random cortisol/rheumatoid factor/Parvo-virus/blood parasite neg. EBV panel/anti Ds DNA/Anti-CCP/TB T spot pending.
-TTE normal and no vegetation
-Abx discontinued as no clear infectious source
-Started on prednisone 40mg/d for possible autoimmune/rheumatologic component
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
2. Diarrhea
Acute abdominal pain
-Patient having worsening intractable abdominal pain, abdominal examination benign
-stool studies cancelled as symptoms improved.
3. Pancytopenia
-new rapid decline in WBC and plt count
-differential showing bandemia of 22% and lymphopenia 10%
-no atypical cell/plt reported
-BM biopsy advisable but may have to postpone till next week
4. Depression/anxiety
-continue on sertraline
5. Essential HTN
-Blood pressure controlled without losartan/hydrochlorothiazide, continue monitor
-will resume once appropriate
6. Elevated ferritin level
Mild transaminitis
-LFT minimally elevated with ferritin of 2980
-acute phase reactant elevation presumably
6. Microcytic anemia
-MCV 76.5 which is chronically low at somewhat same level
-Ferritin elevated. check for Iron saturation in morning
7.Hyperlipidemia
-Maintain on Lipitor
DVT PPX -scd
Full code
Discussed with heamtology/ID
Anticipated Discharge: Within 24 hours
Subjective/Interval History
-
Date of Service: October 02, 2023
Continues to high-grade fever
diarrhea better with symptomatic care
no nausea/vomiting
reported sleep disturbance and anxious
Objective Data
-
Labs:
Laboratory Results
10/02/23
06:05
WBC 2.6 L
Hgb 10.1 L
Hct 29.1 L
Plt Count 79 L D
Sodium 134 L
Potassium 3.6
Chloride 102
Carbon Dioxide 23
BUN 13
Creatinine 0.6
Glucose 106 H
Calcium 8.6
Vital Signs:
Vital Signs
Temp Pulse Resp BP Pulse Ox
102.7 F H 96 16 121/83 95
10/02/23 11:00 10/02/23 11:00 10/02/23 11:00 10/02/23 11:00 10/02/23 12:59
I&O
10/01/23 10/02/23 10/03/23
06:59 06:59 06:59
Intake Total 2640 / 2640 480 / 480
Balance 2640 / 2640 480 / 480
Review of Systems
-
Respiratory: Reports No Symptoms
Cardiac: Reports No Symptoms
Abdomen/GI: Reports No Symptoms
Physical Exam
-
General: No Apparent Distress and Comfortable
HEENT: Negative Oxygen
Respiratory: Clear to Auscultation
Cardiac: Regular Rhythm and S1/S2; Negative Murmur or Rub
GI: Soft, Normal Bowel Sounds and Tender
Musculoskeletal: No Edema
Neuro: Awake, Alert, Oriented, No Motor Deficits and Nonfocal/Grossly Intact
Psych: Calm
[2023-10-02 14:37] LABS: EBV-EA (D) Ab IgG 15.2 U/mL (0.0-10.9); EBV-NA IgG >600.0 U/mL (0.0-21.9); EBV-VCA IgM Antibodies <10.0 U/mL (0.0-43.9)
[2023-10-02 15:14] VITALS: BP 101/71
[2023-10-02 16:54] LABS: DNase-B Antibody <86 U/mL (<=259)
[2023-10-02] MEDS: LOVENOX SC (17:02)
[2023-10-02 18:46] LABS: Albumin 2.45 g/dL (3.75-5.01); Alpha 1 Globulin 0.44 g/dL (0.19-0.46); Alpha 2 Globulin 0.88 g/dL (0.48-1.05); SPEP IFE Reflex Not Done; Total Protein-Electrophoresis 5.1 g/dL (6.3-8.2)
[2023-10-02 18:55] LABS: ds-DNA Ab, IgG Reflex To Titer 11 IU (0-24)
[2023-10-02 19:42] VITALS: BP 124/74
[2023-10-02] MEDS: SINGULAIR 10 MG PO (21:11)
[2023-10-02] MEDS: LIPITOR 40 MG PO (21:11)
[2023-10-02] MEDS: ZOLOFT 100 MG PO (21:11)
[2023-10-02] MEDS: MELATONIN 5 MG PO (21:14)
[2023-10-02 23:55] VITALS: BP 125/75
[2023-10-03 03:41] VITALS: BP 149/98
[2023-10-03] MEDS: TYLENOL 650 MG PO (04:47)
[2023-10-03 05:26] VITALS: BMI 33.4
[2023-10-03 07:10] VITALS: BP 130/84
[2023-10-03 07:35] LABS: Hematocrit 29.7 % (37.0-47.0); Mean Corp Hgb Conc. 33.7 g/dL (33.0-37.0); Mean Corpuscular Hgb 25.6 pg (27.0-31.0); Mean Corpuscular Volume 76.2 fL (81.0-99.0); Mean Platelet Volume 10.3 fL (7.4-10.4); Platelet Count 73 10^3/uL (130-400); Red Cell Dist. Width 14.7 % (11.5-14.5); White Blood Cell Count 2.6 10^3/uL (4.8-10.8)
[2023-10-03 07:56] LABS: Blood Urea Nitrogen 17 mg/dl (7-17); Calcium 8.5 mg/dl (8.4-10.2); Carbon Dioxide 26 mmol/L (22-30); Chloride 103 mmol/L (98-107); Estimated Creatinine Clearance 98 ml/min; Glucose 94 mg/dl (70-99); Potassium 3.5 mmol/L (3.5-5.1); Sodium 134 mmol/L (135-145); Triglycerides 219 mg/dl (10-149); eGFR > 60.00
[2023-10-03 08:53] LABS: Quantiferon TB Gold Plus Indeterminate (Negative)
--- NOTE | 2023-10-03 09:11 | W.PN.ID1 ---
Date of Service
Date of Service: October 03, 2023
Today's Communication
Observe off abx.
See below.
Assessment / Plan
# 3 week h/o intermittent sore throat, low grade fever, migratory polyarthralgia/arthritis, and rash -> ALL RESOLVED ON SECOND ROUND OF PREDNISONE TAPER X 12 DAYS.
-Outpatient Lyme neg, Parvovirus IgG/IgM neg, rapid strep x 2 negative, COVID19 neg. s/p 10days of doxycycline and 2 rounds of prednisone taper, outpatient.
# Fevers recurred day after completion of outpt prednisone.
# Acute pancytopenia
# Elevated inflammatory markers: CRP, ferritin
# mild elev AST/ALT
- Bcx x 4 neg to date.
-CT a/p unremarkable
- TTE normal
- UA no significant pyuria, no urinary sxs
- Blood parasite smear neg.
-Repeat Lyme screen negative
-HIV neg; syphilis neg
-Anti-streptolysin O negative.
Anti- DNase negative
- NAVID neg, RF neg, CCP Ab neg. Anti-DS DNA Ab negative
- Acute viral hepatitis negative
- EBV IgG+, IgM neg reflects past infection.
- Inpt doxycycline and ceftriaxone dc'd 09/30 as pt did not respond to the abx's.
- No infectious etiology identified to date.
- Suspect systemic rheumatological/vasculitis condition (agree with hospitalist - possible Adult Still's)
Prednisone started 09/30. Pt continues to feel improved despite persistence of fevers.
- Underlying hematological disorder also in differential dx. Agree with Hem/Onc follow-up for BM bx consideration.
#Additional Past Medical History:
Hypertension
Dyslipidemia
asthma
Depression/anxiety
Stress-induced hives on LUE
Chief Complaint
-: Fever
Subjective / Review of Systems
Pt feels much improved. Eating better. No further abd pain.
Asking to go home with close follow-ups. No insurance until Saturday.
Vital Signs / Physical Exam
Vital Signs
Vital Signs
Temp Pulse Resp BP Pulse Ox
99.4 F 79 18 130/84 93
10/03/23 07:10 10/03/23 07:10 10/03/23 07:10 10/03/23 07:10 10/03/23 07:10
Physical Exam
Constitutional: No Acute Distress and Comfortable
Cardiovascular: Regular Rate and S1/S2
Pulmonary: Clear
Gastrointestinal: Soft, Non Tender, Non Distended and Normal Bowel Sounds
Genito-Urinary: Negative CVA Tenderness
Extremities: Negative Edema
Neurological: AO x 3
Objective Data
Lab Data
Lab Results
10/03/23 07:10
10/03/23 07:10
ESR 20 mm/hour (0-20) 09/29/23 18:58
PT 16.6 Sec (11.4-14.6) H 09/30/23 07:10
INR 1.36 09/30/23 07:10
APTT 55.2 Sec (23.4-35.0) H 09/30/23 07:10
Estimated Creat Clear 98 ml/min 10/03/23 07:10
Lactic Acid 1.0 mmol/L (0.7-2.0) 10/01/23 15:45
Total Bilirubin 0.7 mg/dl (0.2-1.3) 10/01/23 15:45
AST 69 U/L (14-36) H 10/01/23 15:45
ALT 42 U/L (0-35) H 10/01/23 15:45
Alkaline Phosphatase 217 U/L (38-126) H 10/01/23 15:45
C-Reactive Protein 165.70 mg/L (0.0-10.00) H 09/29/23 18:58
Most recent labs reviewed.
Micro Results:
09/29/23 19:37 Blood Culture - Preliminary
Blood/Venous No Growth in 72 hours- Final report to follow
09/29/23 18:58 Blood Culture - Preliminary
Blood/Venous No Growth in 72 hours- Final report to follow
10/01/23 07:04 Blood Parasites Smear - Final
Blood/Venous
09/29/23 09:58 Blood Culture - Preliminary
Blood/Venous No Growth in 72 hours- Final report to follow
09/29/23 09:07 Blood Culture - Preliminary
Blood/Venous No Growth in 72 hours- Final report to follow
09/29/23 09:07 Urine Culture - Final
Urine
09/29/23 CXR: Mild left basilar atelectasis, less likely pneumonia in the appropriate clinical setting.
09/29/23 CT a/p with iv and oral contrast: 2.5 mm left renal calculus. Otherwise normal
Care Review
Plan reviewed with: Physician (Dr. Lakshmi Jo)
[2023-10-03] MEDS: DELTASONE 40 MG PO (09:25)
[2023-10-03] MEDS: PROTONIX IV 40 MG IV (09:25)
[2023-10-03] MEDS: NSS (PRESERVATIVE FREE) 10 ML IV (09:25)
--- NOTE | 2023-10-03 11:46 | CM ---
Scot was discharged earlier today to home with no needs. provided transport home.
Plan: D/C with no needs, Scot agreed with this plan.
PCP: Isa Varner
Pharmacy: [facility] in [place]
--- NOTE | 2023-10-03 16:07 | W.PN.HOSP.TC ---
Addendum entered and electronically signed by Raphael Jo MD 10/04/23 14:54:
Sepsis ruled out
Increased inflammatory markers - etiology unable to be determined .
Original Note:
Today's Communication/Plan
-
d/c home
Assessment / Plan
Assessment / Plan
1. Fever of unclear origin
Migratory polyarthralgia
-Patient with ongoing high-grade fever for last few days
-Patient finished empiric course of amoxicillin/steroid (20 days)/doxycycline (10 days)
-Denies of any recent travel. No previous history of similar issues
-Chest x-ray/CT abdomen pelvis/UA unrevealing for any acute etiology
-Blood cultures have been collected and report pending
-Test sent for TB T spot/NAVID/rheumatoid factor/anti-CCP
-Significantly elevated acute phase reactant, CRP of 165. Ferritin 2980. ESR normal? 20
-Does have family history of SLE, NAVID serum are elevated will need to check for dsDNA ab pending.
-Patient also reported skin rash which is resolved this point (likely from steroid course?), vasculitis remains in differential
-Hepatitis/syphilis/lyme/random cortisol/rheumatoid factor/Parvo-virus/blood parasite neg. EBV panel/anti Ds DNA/Anti-CCP/TB T spot pending.
-TTE normal and no vegetation
-Abx discontinued as no clear infectious source
-Started on prednisone 40mg/d for possible autoimmune/rheumatologic component
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
2. Diarrhea
Acute abdominal pain
-Patient having worsening intractable abdominal pain, abdominal examination benign
-stool studies cancelled as symptoms improved.
3. Pancytopenia
-new rapid decline in WBC and plt count
-differential showing bandemia of 22% and lymphopenia 10%
-no atypical cell/plt reported
-BM biopsy advisable but may have to postpone till next week
4. Depression/anxiety
-continue on sertraline
5. Essential HTN
-Blood pressure controlled without losartan/hydrochlorothiazide, continue monitor
-will resume once appropriate
6. Elevated ferritin level
Mild transaminitis
-LFT minimally elevated with ferritin of 2980
-acute phase reactant elevation presumably
6. Microcytic anemia
-MCV 76.5 which is chronically low at somewhat same level
-Ferritin elevated. check for Iron saturation in morning
7.Hyperlipidemia
-Maintain on Lipitor
8. Hyponatremia
-mild
DVT PPX -scd
Full code
More than 30 minutes spent in discharge including
Final examination of the patient
Summarizing hospital stay
Instructions for continuing care to all relevant caregivers
Preparation of discharge records, prescriptions, and referral forms
Total time spent (in minutes): 36 mins
Anticipated Discharge: Today
Subjective/Interval History
-
Date of Service: October 03, 2023
Resting comfortably in bed
Continues to have fever although severity going down
Objective Data
-
Labs:
Laboratory Results
10/03/23
07:10
WBC 2.6 L
Hgb 10.0 L
Hct 29.7 L
Plt Count 73 L
Sodium 134 L
Potassium 3.5
Chloride 103
Carbon Dioxide 26
BUN 17
Creatinine 0.7
Glucose 94
Calcium 8.5
Vital Signs:
Vital Signs
Temp Pulse Resp BP Pulse Ox
99.4 F 79 18 130/84 93
10/03/23 07:10 10/03/23 07:10 10/03/23 07:10 10/03/23 07:10 10/03/23 07:10
I&O
10/02/23 10/03/23 10/04/23
06:59 06:59 06:59
Intake Total 480 / 480 1380 / 1380
Balance 480 / 480 1380 / 1380
Review of Systems
-
Respiratory: Reports No Symptoms
Cardiac: Reports No Symptoms
Abdomen/GI: Reports No Symptoms
Physical Exam
-
General: No Apparent Distress and Comfortable
HEENT: Negative Oxygen
Respiratory: Clear to Auscultation
Cardiac: Regular Rhythm and S1/S2; Negative Murmur or Rub
GI: Soft, Normal Bowel Sounds and Tender
Musculoskeletal: No Edema
Neuro: Awake, Alert, Oriented, No Motor Deficits and Nonfocal/Grossly Intact
Psych: Calm
[2023-10-05 05:25] LABS: Anaplasma phagocytophilum IgG <1:80 (<1:80); Anaplasma phagocytophilum IgM < 1:16 (< 1:16)
[2023-10-05 10:02] LABS: Myeloperoxidase Antibody 0 AU/mL (0-19); Serine Protease-3, IgG 0 AU/mL (0-19)
== END 2023-10-03 11:10 | disposition home or self-care (01) | DRG 864 ==
LOC: 4 EAST ACU 17:46
PROVIDERS: Physician Assistant; ADMITTING PHYSICIAN Internal Medicine; ATTENDING PHYSICIAN Hospitalist; CONSULT PHYSICIAN Internal Medicine Hematology & Oncology; EMERGENCY PHYSICIAN Emergency Medicine; FAMILY PHYSICIAN Physician Assistant Medical; OTHER PHYSICIAN Internal Medicine Infectious Disease
DX: R50.9 Fever, unspecified (principal); D61.818 Other pancytopenia; E87.1 Hypo-osmolality and hyponatremia; M13.89 Other specified arthritis, multiple sites; I95.9 Hypotension, unspecified; R74.01 Elevation of levels of liver transaminase levels; I10 Essential (primary) hypertension; E78.00 Pure hypercholesterolemia, unspecified; M06.1 Adult-onset Still's disease; R21 Rash and other nonspecific skin eruption; D72.829 Elevated white blood cell count, unspecified; R00.0 Tachycardia, unspecified; R31.9 Hematuria, unspecified; N20.0 Calculus of kidney; R82.71 Bacteriuria; F41.9 Anxiety disorder, unspecified; F32.A Depression, unspecified; D50.9 Iron deficiency anemia, unspecified; J45.909 Unspecified asthma, uncomplicated; R19.7 Diarrhea, unspecified; R10.9 Unspecified abdominal pain
CPT/HCPCS: 71046; 74177; 80048; 80053; 81003; 81015; 82533; 82728; 83516; 83605; 83690; 84155; 84165; 84466; 84478; 85025; 85027; 85610; 85652; 85730; 86038; 86063; 86140; 86200; 86215; 86225; 86430; 86480; 86618; 86663; 86664; 86665; 86666; 86704; 86706; 86780; 86803; 87015; 87040; 87086; 87207; 87340; 87389; 93005; 93306; 96361; 96372; 96374; 96375; 96376; 99285; Q9967

== ENCOUNTER → 2024-02-21 10:11 | Outpatient (REF) | payer BC, SELFPAY | LOC: DHSLP 10:11 | PROVIDERS: ATTENDING PHYSICIAN Internal Medicine; FAMILY PHYSICIAN Nurse Practitioner Family | DX: G47.33 Obstructive sleep apnea (adult) (pediatric) (principal) | CPT/HCPCS: 95800 ==